=== PATIENT | male | born 1930 | race African-American/Black ===

== ENCOUNTER 2017-04-01 12:09 | Emergency (ER) | payer OTHER ==
[~2017-04-01] VITALS: Ht 175.3 cm; Wt 83.0 kg
[2017-04-01] MEDS ORDERED: DEXTROSE 50% WATER 50ML SYRINGE IV ONE ×2 (12:36→16:45)
[2017-04-01 16:00] VITALS: BP 140/75
== END 2017-04-01 16:59 | disposition home or self-care (01) ==
LOC: ER 12:34
DX: E11.649 Type 2 diabetes mellitus with hypoglycemia without coma (principal); E78.00 Pure hypercholesterolemia, unspecified; I10 Essential (primary) hypertension; R41.82 Altered mental status, unspecified
CPT/HCPCS: 82962; 99283